=== PATIENT | female | born 1960 | race Caucasian/White ===

== ENCOUNTER 2022-04-18 08:39 | Outpatient (CLI) | payer OTHER, BC, SELFPAY ==
--- NOTE | 2022-04-18 09:15 | TELERAD_ITS ---
[facility] [address] [facility] [address] Phone:?[phone] Fax:?[phone] Referring Physician Information: Maxwell Man M.D. [address] [place] [address] Phone:?[phone] Fax:?[phone] Patient:?Sabine Hayes D.O.B:?1960 Sex:?Female Phone:?[phone] [facility] MRN:?[id number] Exam Date:?04/18/2022 ? EXAM: MRI of the RIGHT HIP, without contrast CLINICAL: Right hip pain. Evaluate arthritis. COMPARISONS: None available. TECHNICAL: MR sequences of the right hip: Axials: PD FS Axial oblique: PD Coronals: PD, T2 Coronal pelvis: T1 and STIR Sagittals: PD and T2 SEDATION: None. CONTRAST: None. FINDINGS: Hip joint: Physiologic volume of joint fluid with synovitis. No convincing loose bodies. There is full-thickness chondral loss involving the superior right hip joint with subchondral reactive marrow edema involving the peripheral acetabular roof. Labrum: There is tearing throughout the anterosuperior labrum with tearing extending into the superior and posterior superior labrum. No perilabral cyst formation identified. Proximal femur: No fracture or osteonecrosis. There is mild degenerative peripheral marginal spurring about the femoral head neck junction and about the fovea, with minimal reactive marrow edema involving the medial femoral head about the fovea. Acetabulum: Subchondral reactive marrow edema is seen to involve the peripheral acetabular roof. Mild degenerative peripheral marginal spurring. No acetabular fracture. Ligamentum teres: Intact and unremarkable. Pelvis osseous structures: No suspicious marrow signal alteration or fracture line. Sacroiliac joints are maintained without marrow signal changes to suggest sacroiliitis or significant arthrosis. Mild changes of arthrosis are seen to involve the pubic symphysis. No pubic symphysis widening. Myotendinous structures: Gluteus abductors: No convincing insertional tendinopathy or tear of gluteus minimus or medius. Adductors: No demonstrable tendinopathy or strain/tear. Pre-pubic aponeurotic complex: Intact, without evidence of common rectus abdominis-adductor longus aponeurosis or pubic plate lesion. Hamstrings: There is moderate tendinosis and mild partial tearing of the proximal hamstring tendons bilaterally at the ischial tuberosity attachment sites. Flexors: Intact iliopsoas and rectus femoris, without strain/tear. External rotators: Intact. The ischiofemoral and quadratus femoris spaces are within normal limits. Gluteal aponeurotic fascia and IT band: Unremarkable. Bursae: No demonstrable trochanteric or iliopsoas bursitis. Intrapelvic structures: Although evaluation of the intrapelvic structures is limited on this exam, no convincing pelvic mass is identified as visualized. Multilevel disc desiccation is seen to involve the imaged lower lumbar spine. Heterogenous signal changes are seen to involve the superior acetabulum of the left hip joint. There is tearing of the superior acetabulum on the left. IMPRESSION: 1. Full-thickness chondral loss involving the superior right hip joint with subchondral reactive marrow edema along the peripheral acetabular roof. Otherwise mild osseous changes of arthrosis involving the right hip joint. 2. Tearing throughout the anterosuperior labrum with tearing extending into the superior and posterior superior labrum. 3. Mild changes of arthrosis involving the pubic symphysis. 4. Moderate tendinosis and mild partial tearing of the proximal hamstring tendons bilaterally at the ischial tuberosity attachment sites. 5. Heterogenous marrow signal changes involving the superior left acetabulum, nonspecific but favored to be benign. Recommend comparison with any prior MRI examinations if available to document stability. There is also tearing of the superior labrum on the left. JCZ Electronically signed on 04/18/2022 3:42:00 PM by Nino Jenkins D.O.
== END 2022-04-18 08:40 | disposition home or self-care (01) ==
LOC: MRI 08:41
PROVIDERS: Visit Provider Orthopaedic Surgery
DX: M25.551 Pain in right hip (principal); S43.431A Superior glenoid labrum lesion of right shoulder, initial encounter
CPT/HCPCS: 73721

== ENCOUNTER 2022-06-01 11:00 | Outpatient (RCR) | payer OTHER, BC, SELFPAY | END 2022-06-01 15:31 | disposition home or self-care (01) | PROVIDERS: Visit Provider Orthopaedic Surgery | DX: M25.551 Pain in right hip (principal) | CPT/HCPCS: 97033; 97035; 97110; 97140; X5282 ==

== ENCOUNTER 2022-07-17 10:45 | Outpatient (RCR) | payer BC, SELFPAY | END 2022-07-17 13:20 | disposition home or self-care (01) | PROVIDERS: PCP Orthopaedic Surgery; Visit Provider Orthopaedic Surgery | DX: M16.11 Unilateral primary osteoarthritis, right hip (principal); Z51.89 Encounter for other specified aftercare | CPT/HCPCS: 97110; 97140; 97161 ==

== ENCOUNTER 2023-01-29 10:00 | Outpatient (RCR) | payer BC, SELFPAY | END 2023-05-29 23:59 | disposition home or self-care (01) | PROVIDERS: Visit Provider Orthopaedic Surgery | DX: G56.01 Carpal tunnel syndrome, right upper limb (principal); Z51.89 Encounter for other specified aftercare | CPT/HCPCS: 97033; 97035; 97140; 97165 ==

== ENCOUNTER 2024-10-14 10:30 | Outpatient (RCR) | payer MEDICARE, BC, SELFPAY ==
--- NOTE | 2024-06-15 14:47 | OT.OPOE ---
OT Outpatient Ortho Eval OT Outpatient Ortho Eval* Start: 06/14/24 11:52 Freq: Status: Active Protocol: Document 06/15/24 07:31 AMB (Rec: 06/15/24 14:43 AMB [id number]) E-signed By Emmanuelle Bhatt, OTR/L, CLT, ROAD PRODUCTION GENERAL MANAGER OT OP Ortho Eval Details Complexity Complexity Low Insurance Information Insurance Information Medicare B Outpatient History/Precautions Current Condition/Medical Diagnosis Referring Provider Dr Man Medical Diagnoses M77.11 RUE Lateral epicondylitis Treatment Diagnosis R53.1 Weakness RUE M25.521 Pain in RUE elbow Date of Onset Chronic ~ 1 year Other Conditions PMH (copied from ortho chart): Active Problems (Updated 05/11 @ 15:05 by Lynn Balderrama) Right lateral epicondylitis ( Acute) M77.11 - Lateral epicondylitis , right elbow (ICD-10) Right carpal tunnel syndrome ( Acute) G56.01 - Carpal tunnel syndrome, right upper limb ( ICD-10) Hamstring tendonitis of left thigh (Acute) M76.892 - Other specified enthesopathies of left lower limb, excluding foot (ICD-10) Hamstring tendonitis of right thigh (Acute) M76.891 - Other specified enthesopathies of right lower limb, excluding foot (ICD-10) Osteoarthritis of right hip ( Acute) M16.11 - Unilateral primary osteoarthritis, right hip (ICD -10) Medical History (Reviewed @ 10:30 by Hafsa Johnson (RN), RN) Left lateral epicondylitis Surgical History (Reviewed @ 10:30 by Hafsa Johnson (RN), RN) H/O pericardiectomy H/O: hysterectomy History of surgery of liver Medical/Functional History Medical History Reviewed Yes Prior Level of Function/Mobility Prior to onset of lateral epicondylitis, pt had full, pain-free use of the RUE, although, she did have occasional issues with CTS. Pt does have hx of CTS in the RUE but that has not bothered in some time. Pt has been treated in this clinic for her RUE CTS and also LUE tennis elbow, both responded favorable to treatment. Social History Employment Status Retired Hobbies Gardening, cares for her grandchildren Fitness Enjoys walking and pickleball Ortho Subjective Subjective Subjective Pt started noticing pain in her right elbow approximately a year ago, feels it is related to playing pickleball. Pt states she played 6 games in one morning and did not take any rest breaks and did not do any stretching, feels this is what triggered her sxs . Pt has increased pain with pinching and pulling activities like pulling weeds, also with wringing out the washcloth, carrying heavy pains, and using her hose or watering can in the garden. Pt states she has no pain at rest, but with activity, pain is ~ 6/10. Pt has a counterforce brace that helps some, has not tried ice or NSAIDs. Pt describes pain as aching, sometimes shooting. Goniometric Comments Goniometric Comments Goniometric Comments 06/15/24 Pt demonstrates full AROM of BUE with the exception of RUE composite fist with wrist flexion and elbow extension which is limited to 60 degrees vs 80 degrees on the LUE. Pt is also limited in elbow AROM which today, measures: flex = 125 vs 140 on the LUE. Elbow extension on the RUE is -20 vs 0 on the LUE . Hand Pinch/Instrumental Teacher Strength Hand Pinch/Instrumental Teacher Strength Hand Pinch/Instrumental Teacher Strength Left Hand,Right Hand Left Hand Instrumental Teacher Strength Position 1 in Elbow 62 Flexion (lbs) Instrumental Teacher Strength Position 2 in Elbow 52 Extension (lbs) Lateral Pinch Strength (lbs) 17 Three Point Pinch (lbs) 14 Right Hand Instrumental Teacher Strength Position 1 in Elbow 50 Flexion (lbs) Instrumental Teacher Strength Position 2 in Elbow 20 Extension (lbs) Lateral Pinch Strength (lbs) 16 Three Point Pinch (lbs) 12 OT Objective Data Hand Hand Dominance Right Upper Extremity Special Tests Elbow Cozens Test Negative Left,Positive Right OT Problems Problems Problems Decreased Strength,Decreased Range of Motion,Pain,Lifting, Gripping,Pinching Other Problems Writing,Opening Containers Patient Potential Good Assessment Assessment Assessment Pt is a very pleasant 63yo referred to OT secondary to pain, weakness, and limited AROM in her RUE elbow. Provocative testing supports diagnosis of lateral epicondylitis. Pt is limited in her ability to carry out her normal gardening activities as well as cleaning and some personal cares due to sxs. Pt will benefit from skilled OT intervention to address sxs and to restore full, pain-free use of her RUE . Pt has had OT for same condition on the LUE and CTS on the RUE and has responded favorably to treatment in the past, pt very motivated for her recovery. Occupational Therapy Treatment Plan - OP Potential Rehabilitation Potential Good Set Goals Goals Set with Patient Yes Goals Goals 1. Pt will be independent and compliant with HEP in order to resume full, pain-free use of the involved UE. 3 weeks 2. Pt will demonstrate full, pain-free AROM of the involved UE in order to improve ability to grasp and hold. 6 weeks 3. Pt will demonstrate pain- free cigarette and filter chief inspector and pinch strength comparable to the uninvolved side in order to improve functional grasp, hold, reach, and lifting ability needed to complete self-care, leisure tasks, and work activities. 8 weeks. Treatment Plan Treatment Plan Evaluation,Edema Control, Iontophoresis,Manual Therapy, Ultrasound,Therapeutic Exercise,Therapeutic Activities,Self Care/Home Management,Education Expected Frequency 1-2x Week Expected Duration 8-10 Weeks Home Program Home Program Home Program Initiated Home Program Specifics 06/15/24 Pt was provided with training and practice in HEP for wrist extensor stretch / tendon glide, cold therapy and self TFM. Following demo, pt is able to complete the routine with minimal cues. Pt was provided written instructions for use at home. Certification Certification Statement I Certify That: Therapy Services Provided, Therapy Plan Established, Therapy Plan Reviewed Certification Information Clinic ID # [id number] Initial Certification Date 06/15/24 Recertification Due Date 09/13/24 Provider Signature Required Yes Provider Signature Shows Agreement With POC & Medical Necessity Physician NPI Number Write NPI# Here Physician Comment/Change Comment or Changes Physician Signature & Date Requested Please Sign/Date Here
--- NOTE | 2024-09-09 12:05 | OT.OPODN ---
OT Outpatient Ortho Daily Note OT Outpatient Ortho Daily Note* Start: 06/14/24 11:52 Freq: Status: Active Protocol: Document 09/09/24 10:31 AMB (Rec: 09/09/24 12:04 AMB [id number]) E-signed By Emmanuelle Bhatt, OTR/L, CLT, DATA COLLECTION SPECIALIST Type of Note Type of Note Type of Note Daily Note,Recert/Progress Note Visit Number 6 Comments MC cert due 12/08/24 Insurance Information Insurance Information Medicare B Outpatient History/Precautions Current Condition/Medical Diagnosis Referring Provider Dr Man Medical Diagnoses M77.11 RUE Lateral epicondylitis Treatment Diagnosis R53.1 Weakness RUE M25.521 Pain in RUE elbow Date of Onset Chronic ~ 1 year Other Conditions PMH (copied from ortho chart): Active Problems (Updated 05/11 @ 15:05 by Lynn Balderrama) Right lateral epicondylitis ( Acute) M77.11 - Lateral epicondylitis , right elbow (ICD-10) Right carpal tunnel syndrome ( Acute) G56.01 - Carpal tunnel syndrome, right upper limb ( ICD-10) Hamstring tendonitis of left thigh (Acute) M76.892 - Other specified enthesopathies of left lower limb, excluding foot (ICD-10) Hamstring tendonitis of right thigh (Acute) M76.891 - Other specified enthesopathies of right lower limb, excluding foot (ICD-10) Osteoarthritis of right hip ( Acute) M16.11 - Unilateral primary osteoarthritis, right hip (ICD -10) Medical History (Reviewed @ 10:30 by Hafsa Johnson (RN), RN) Left lateral epicondylitis Surgical History (Reviewed @ 10:30 by Hafsa Johnson (RN), RN) H/O pericardiectomy H/O: hysterectomy History of surgery of liver Medical/Functional History Medical History Reviewed Yes Prior Level of Function/Mobility Prior to onset of lateral epicondylitis, pt had full, pain-free use of the RUE, although, she did have occasional issues with CTS. Pt does have hx of CTS in the RUE but that has not bothered in some time. Pt has been treated in this clinic for her RUE CTS and also LUE tennis elbow, both responded favorable to treatment. Social History Employment Status Retired Hobbies Gardening, cares for her grandchildren Fitness Enjoys walking and pickleball Ortho Subjective Subjective Subjective Pt feels she is at least 50% improved, having much less pain with her daily tasks, especially noticeable improvement with cooking tasks , still gets pain with lifting and some repetitive tasks. Pt has been working on her HEP, feels great benefit with her strengthening exs. OT OP Daily Ortho Note/Assessment Therapeutic Exercise Therapeutic Exercise Minutes (minutes) 16 Therapeutic Exercise Comments Review of HEP for resisted finger/thumb ext/abd with yellow band, eccentric wrist ext strengthening, forearm turns with hammer, and gripping with green TP. Increased resistance with wrist ext to 3#, increased reps on all exs to 15-20. Manual Therapy Manual Therapy Minutes (minutes) 16 Manual Therapy Comments Provided deep STM with TRP and MFR into the RUE wrist/finger extensor mm group for mm relaxation and to promote circulation and pain reduction . Utilized Graston tool to provide IASTM to wrist ext group. Ultrasound Ultrasound Minutes (minutes) 10 Ultrasound Location & Joint Position RUE lateral epicondyle and forearm for circulatory and anti-inflammatory benefit. Ultrasound Frequency & Mode 1 MHz Pulsed Intensity (w/cm2) 1.5 Iontophoresis Iontophoresis Minutes (minutes) 5 Iontophoresis Location RUE lateral epicondyle for anti-inflammatory benefit Iontophoresis Treatment Parameters & 80 mAmp*min,Extended Wear Rational/Set Up Patch,Dexamethasone, Instruction In Removal, Instruction In Rationale, Instruct Desired Response Iontophoresis Comments Iontophoresis is not a billable procedure for Medicare Total Occupational Therapy Time Occupational Therapy Minutes 47 Home Program Home Program Home Program Compliant Home Program Specifics 09/09/24 Review of HEP for resisted finger/thumb ext/abd with yellow band, eccentric wrist ext strengthening, forearm turns with hammer, and gripping with green TP. Increased resistance with wrist ext to 3#, increased reps on all exs to 15-20. 08/25/24 Provided training and practice in HEP for resisted finger/thumb ext/abd with yellow band, eccentric wrist ext strengthening with 2 #, forearm turns with hammer, and gripping with green TP. Following demonstration, pt is able to complete 10-15 reps of each ex with minimal cues. Pt was provided with green putty, yellow band, and written instructions for use at home. 06/15/24 Pt was provided with training and practice in HEP for wrist extensor stretch / tendon glide, cold therapy and self TFM. Following demo, pt is able to complete the routine with minimal cues. Pt was provided written instructions for use at home. Goniometric Comments Goniometric Comments Goniometric Comments 06/15/24 Pt demonstrates full AROM of BUE with the exception of RUE composite fist with wrist flexion and elbow extension which is limited to 60 degrees vs 80 degrees on the LUE. Pt is also limited in elbow AROM which today, measures: flex = 125 vs 140 on the LUE. Elbow extension on the RUE is -20 vs 0 on the LUE . Hand Pinch/Silver Plater Strength Hand Pinch/Silver Plater Strength Hand Pinch/Silver Plater Strength Left Hand,Right Hand Left Hand Silver Plater Strength Position 1 in Elbow 62 Flexion (lbs) Silver Plater Strength Position 2 in Elbow 52 Extension (lbs) Lateral Pinch Strength (lbs) 17 Three Point Pinch (lbs) 14 Right Hand Silver Plater Strength Position 1 in Elbow 65 Flexion (lbs) Silver Plater Strength Position 2 in Elbow 47 Extension (lbs) Lateral Pinch Strength (lbs) 18 Three Point Pinch (lbs) 15 Comments Comments 09/09/24 Pt showing slight improvement in spout positioner strength but still has discomfort with spout positioner strength testing with elbow extended. OT Objective Data Hand Hand Dominance Right Upper Extremity Special Tests Elbow Cozens Test Negative Left,Positive Right OT Problems Problems Problems Decreased Strength,Decreased Range of Motion,Pain,Lifting, Gripping,Pinching Other Problems Writing,Opening Containers Patient Potential Good Assessment Assessment Assessment Pt has been seen for 6 Occupational Therapy Treatment Plan - OP Potential Rehabilitation Potential Good Set Goals Goals Set with Patient Yes Goals Goals 1. Pt will be independent and compliant with HEP in order to resume full, pain-free use of the involved UE. 3 weeks 08/23 Pt has met this goal, she is very compliant with HEP and all clinic visits / recommendations. 2. Pt will demonstrate full, pain-free AROM of the involved UE in order to improve ability to grasp and hold. 6 weeks 09/09/24 This goal has been partially met, she is showing improved composite fist with wrist flexion and elbow extension but still limited by 5-10 degrees when compared to the LUE. Goal is still in progress and appropriate. 3. Pt will demonstrate pain- free spout positioner and pinch strength comparable to the uninvolved side in order to improve functional grasp, hold, reach, and lifting ability needed to complete self-care, leisure tasks, and work activities. 8 weeks. 09/09/24 Goal is partially met, demonstrates significant improvement in strength but still having discomfort. Treatment Plan Treatment Plan Evaluation,Edema Control, Iontophoresis,Manual Therapy, Ultrasound,Therapeutic Exercise,Therapeutic Activities,Self Care/Home Management,Education Expected Frequency 1-2x Week Expected Duration 8-10 Weeks Occupational Therapy Billing Units Treatment Minutes Timed Treatment Minutes 47 Total Treatment Minutes 47 Billing Units Manual Therapy 1 Therapeutic Exercise 1 Ultrasound 1 Certification Statement Certification Statement I Certify That: Therapy Services Provided, Therapy Plan Established, Therapy Plan Reviewed Recertification Information Recertification Information Initial Certification Date 06/15/24 Recertification Start Date 09/09/24 Recertification Due Date 12/08/24 Reasons to Continue Skilled Therapy Pt has been seen for a total of 6 visits and is verbalizing the ability to do more ADLs and IADLs using her RUE with less pain, however, she still has discomfort with heavier gripping and lifting activities. Pt feel she is still benefitting from her OT sessions as she feels great benefit in MT and also feels the iontophoresis patches are helping with the inflammation. Rehabilitation Potential Good Click To Default 'Per treatment plan' Per treatment plan Continued Plan of Care and Interventions Per treatment plan Provider Signature Required Yes Provider Signature Shows Agreement With POC & Medical Necessity Physician NPI Number Write NPI# Here Physician Comment/Change Comment or Changes Physician Signature & Date Requested Please Sign/Date Here
== END 2024-10-14 12:21 | disposition home or self-care (01) ==
PROVIDERS: PCP Family Medicine; Visit Provider Orthopaedic Surgery
DX: M77.11 Lateral epicondylitis, right elbow (principal); R53.1 Weakness; M25.521 Pain in right elbow; Z51.89 Encounter for other specified aftercare
CPT/HCPCS: 97035; 97110; 97140; 97165; 97535; X5282